=== PATIENT | female | born 1950 | race Caucasian/White ===

== ENCOUNTER 2018-03-16 08:57 | Day surgery (SDC) | payer MEDICARE, OTHER ==
[2018-03-16] MEDS ORDERED: Ketamine HCl 50 MG/ML IV ONE (08:58)
[2018-03-16] MEDS ORDERED: DIPRIVAN 200 MG/20 ML IV ONE (08:58)
--- NOTE | 2018-03-16 09:00 | HP ---
DATE OF SURGERY: 03/16/2018 HISTORY OF PRESENT ILLNESS: The patient is a 67 year-old last colonoscopy greater than six years ago. No change in bowel habits. No bloody stools. Family history negative for colon cancer. She is in need of follow up screening colonoscopy as requested per nurse practitioner. PAST MEDICAL HISTORY: Reflux. Anxiety. Depression. PAST SURGICAL HISTORY: Cholecystectomy. Cataract surgery. Sinus surgery. Cyst removed. Hysterectomy. Knee surgery. MEDICATIONS: Omeprazole, triamterene hydrochloride, escitalopram, oxybutynin, sumatriptan. ALLERGIES: NKDA. FAMILY HISTORY: Cancer. Hypertension. Heart disease. SOCIAL HISTORY: No smoking. Occasional wine denies alcohol abuse. REVIEW OF SYSTEMS: Twelve systems reviewed negative or noncontributory as above and per preadmission questionnaire. PHYSICAL EXAMINATION: GENERAL: No acute distress. HEENT: Sclerae nonicteric. NECK: No JVD. CHEST: Equal excursion, nonlabored breathing. CVS: Regular rate and rhythm. ABDOMEN: Soft. No peritoneal signs. EXTREMITIES: No significant edema. NEURO: Alert, oriented, moving extremities symmetrically. No gross motor deficits noted. RECTAL: Deferred timed to endoscopy exam. IMPRESSION: Need for screening colonoscopy. I feel the patient is a candidate. Shown the risk sheet and explained the procedure in detail including but not limited to bleeding or infection, small risk of bowel injury or perforation possibly requiring open procedure, risk of ongoing morbidity, risk of missed or nondiagnosis or incomplete exam possibly requiring barium enema, other studies or procedures, general risk of anesthesia or sedation, risk of bowel prep, postoperative risk of nausea or cramping but not limited to. She understands and agrees to the planned procedure and will proceed with outpatient screening colonoscopy.
[2018-03-16] MEDS ORDERED: Lactated Ringers 1,000 ML IV ONE (09:54)
[2018-03-16] MEDS ORDERED: Lactated Ringers 1,000 ML IV SCH (10:00)
[2018-03-16 12:02] VITALS: BP 145/96; PULSE 68; O2SAT 95
--- NOTE | 2018-03-16 15:32 | OP ---
SURGERY DATE/TIME: 03/16/2018 1054 PREOPERATIVE DIAGNOSIS: Screening colonoscopy. POSTOPERATIVE DIAGNOSES: 1) Diverticulosis. 2) Small internal and external hemorrhoids. 3) Somewhat limited bowel prep, some liquidy and some semi-solid stool throughout the colon, overall fair technically. PROCEDURES: Colonoscopy to cecum. SURGEON: Dr. Patrick Lambert. ANESTHESIA: MAC. ESTIMATED BLOOD LOSS: Minimal. INDICATIONS: As noted above. Risks and benefits explained in detail but not limited to and consent obtained. DESCRIPTION OF PROCEDURE AND FINDINGS: The patient is taken to the endoscopy suite. MAC anesthesia introduced. After official time out and no disagreement with planned procedure, digital rectal exam did not reveal any rectal masses. She did have some small internal and external hemorrhoids. Video colonoscope inserted and passed up through the tortuous sigmoid, descending, transverse and ascending colon. With external pressure in a couple different locations by staff members, scope was able to be passed around to the cecum, appendiceal orifice and valve well visualized. Prep did limit the exam somewhat with liquidy, semi-solid stools suction irrigated as well as possible but limiting the exam for very small lesions. Scope slowly and carefully withdrawn. There were no signs of any large polyps, masses or obstructing lesions. She did have diverticulosis mainly in the left colon with some scattered throughout. She had small internal and external hemorrhoids otherwise there were no signs of any large polyps, masses or obstructing lesions. The scope is withdrawn. There were no immediate complications. There was no family available to discuss the findings with. As her prep was just somewhat limited, overall fair category I recommend considering follow up colonoscopy in about five years. Otherwise continue high fiber diet. No biopsies were necessary. If she has any questions we can see her in the office next week otherwise we put her in the reminder system.
== END 2018-03-16 12:18 | disposition home or self-care (01) ==
LOC: SDC 08:57
PROVIDERS: ATTEND Surgery
DX: Z12.11 Encounter for screening for malignant neoplasm of colon (principal); K57.90 Diverticulosis of intestine, part unspecified, without perforation or abscess without bleeding; K64.4 Residual hemorrhoidal skin tags; K64.8 Other hemorrhoids; K21.9 Gastro-esophageal reflux disease without esophagitis; F41.9 Anxiety disorder, unspecified; F32.9 Major depressive disorder, single episode, unspecified; Z79.899 Other long term (current) drug therapy
CPT/HCPCS: J2704

== ENCOUNTER 2018-05-02 09:20 | Emergency (ER) | payer MEDICARE, OTHER ==
[2018-05-02] MEDS ORDERED: Zofran 4 MG/2 ML VIAL IV ONE (09:50)
--- NOTE | 2018-05-02 09:58 | ERPHSYRPT ---
- History of Present Illness Time Seen by Provider: 05/02/18 09:30 Historian: patient, family Exam Limitations: no limitations Patient Subjective Stated Complaint: PT C/O INTERMITTENT VOMITING SINCE 9 DAYS AGO, STATES HAS BEEN CONSTANT SINCE 3 DAYS AGO, ET DIARRHEA. REPORTS FEELING LIKE SHE HAS HAD A FEVER, BUT HAS NOT CHECKED TEMP AT HOME. PT WAS SEEN BY PCP YESTERDAY AND GIVEN ZOFRAN WITH NO RELIEF AND WAS TESTED FOR INFLUENZA AND TOLD IT WAS NEGATIVE. Triage Nursing Assessment: PINK/WARM/DRY, RESP EASY, A&OX4, STEADY GAIT FROM WHEELCHAIR TO BED. NO DISTRESS NOTED, NO ACTIVE VOMITING. 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 feverish- not documented- diarrhea x 1 only yesterday; some general abd pain now from N&V - not localized ; no symptoms; no prior hx; Timing/Duration: day(s) (diarrhea x 1 yesterday/), week(s) (one), intermittent, gradual onset, worse Activities at Onset: none Quality: aching Abdominal Pain Onset Location: generalized abdomen Pain Radiation: no radiation Severity of Pain-Max: mild Severity of Pain-Current: mild Modifying Factors: Improves With: vomiting Associated Symptoms: back, diarrhea (x 1 yesterday only), fever/chills, loss of appetite, nausea, vomiting Previous symptoms: no prior history Allergies/Adverse Reactions: iodine Allergy (Verified 05/02/18 09:31) latex Allergy (Verified 05/02/18 09:31) Home Medications: Escitalopram Oxalate 10 mg [Lexapro 10 MG] 10 mg PO DAILY 05/23/13 [History] Omeprazole 20 MG [Prilosec 20 mg] 40 mg PO DAILY 05/23/13 [History] Oxybutynin Chloride 5 mg PO TID 03/04/18 [History] Sumatriptan Succinate [Imitrex] 100 mg PO QDP PRN 03/04/18 [History] Triamterene/Hydrochlorothiazid [Triamterene-Hctz 37.5-25 mg Tb] 1 each PO DAILY 03/04/18 [History] Ashwagandha 1 tab PO DAILY 05/02/18 [History] Calcium Carb, Citrate/Vit D3 [Calcium + D3 ER Tablet] 1 tab PO DAILY 05/02/18 [ History] Cholecalciferol (Vitamin D3) [Vitamin D3] 05/02/18 [History] Cyanocobalamin (Vitamin B-12) [Vitamin B12] 500 mcg PO DAILY 05/02/18 [History] Iron 28 mg PO DAILY 05/02/18 [History] Multivit with Iron,Minerals [Complete Senior] 1 tab PO DAILY 05/02/18 [History] Ondansetron HCl 8 mg PO Q6H PRN PRN 05/02/18 [History] Turmeric 450 mg PO DAILY 05/02/18 [History] Zinc Gluconate [Zinc] 30 mg PO DAILY 05/02/18 [History] Hx Tetanus, Diphtheria Vaccination/Date Given: No Hx Influenza Vaccination/Date Given: No Hx Pneumococcal Vaccination/Date Given: No Immunizations Up to Date: Yes - Review of Systems Constitutional: Fever, Chills Eyes: No Symptoms Ears, Nose, & Throat: No Symptoms Respiratory: No Cough, No Dyspnea, No Wheezing Cardiac: No Chest Pain, No Palpitations, No Syncope Abdominal/Gastrointestinal: Abdominal Pain, Nausea, Vomiting, Diarrhea (x 1 only ), No Constipation, No Hematemesis, No Hematochezia Genitourinary Symptoms: No Symptoms Musculoskeletal: Back Pain, No Arthralgias, No Neck Pain, No Fall Skin: No Symptoms Neurological: No Symptoms Psychological: No Symptoms Endocrine: No Symptoms Hematologic/Lymphatic: No Symptoms Immunological/Allergic: No Symptoms - Past Medical History Pertinent Past Medical History: No Neurological History: Migraines ENT History: No Pertinent History Cardiac History: No Pertinent History Respiratory History: No Pertinent History Endocrine Medical History: No Pertinent History Musculoskeletal History: No Pertinent History GI Medical History: GERD History: Other Psycho-Social History: Depression Female Reproductive Disorders: No Pertinent History Other Medical History: bladder urgency. - Past Surgical History Past Surgical History: Yes Neuro Surgical History: No Pertinent History Cardiac: No Pertinent History Respiratory: No Pertinent History Gastrointestinal: Cholecystectomy Genitourinary: No Pertinent History Musculoskeletal: Orthopedic Surgery Female Surgical History: Hysterectomy Other Surgical History: Cyst removed from breast and neck, partial knee replacement, sinus surgery, - Social History Smoking Status: Former smoker Exposure to second hand smoke: No Alcohol Use: None Drug Use: none Patient Lives Alone: No Significant Family History: no pertinent family hx - Female History Hx Now: No - Nursing Vital Signs Nursing Vital Signs: Initial Vital Signs Temperature 98.9 F 05/02/18 09:32 Pulse Rate 90 05/02/18 09:32 Respiratory Rate 16 05/02/18 09:32 Blood Pressure 126/97 05/02/18 09:32 O2 Sat by Pulse Oximetry 96 05/02/18 09:32 Pain Scale Pain Intensity 0 - Physical Exam General Appearance: moderate distress, alert Eye Exam: PERRL/EOMI, eyes nml inspection Ears, Nose, Throat Exam: normal ENT inspection, TMs normal, pharynx normal, dry mucous membranes, No moist mucous membranes, No pharyngeal erythema, No tonsillar exudate Neck Exam: normal inspection, non-tender, supple, full range of motion, No meningismus, No carotid bruit, No JVD Respiratory Exam: normal breath sounds, lungs clear, airway intact, No chest tenderness, No respiratory distress, No crackles/rales, No rhonchi, No wheezing Cardiovascular Exam: regular rate/rhythm, normal heart sounds, normal peripheral pulses, capillary refill <2 sec, No murmur Gastrointestinal/Abdomen Exam: soft, normal bowel sounds, tenderness (mild diffuse; slight increasedd in epig and RUQ but no guarding), No distention, No guarding, No pulsatile mass, No rebound, No organomegaly Pelvic Exam: deferred Rectal Exam: deferred Back Exam: normal inspection, normal range of motion, CVA tenderness (mild right ), No vertebral tenderness, No rash Extremity Exam: normal inspection, normal range of motion, No jose luis's sign, No pedal edema Neurologic Exam: alert, oriented x 3, cooperative, 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, normal mood/affect, nml station & gait, sensation nml Skin Exam: normal color, warm, dry, No rash, No petechiae, No cyanosis Lymphatic Exam: No adenopathy SpO2 Interpretation: normal SpO2: 96 O2 Delivery: Room Air - Course Nursing assessment & vital signs reviewed: Yes - CT Exams Abdomen/Pelvis CT Interpretation: Negative, Tele-radiologist Report (diverticulosis) Ordered Tests: Active Orders 24 hr Category Date Time Status Cath for Specimen-Straight STAT Care 05/02/18 09:51 Active IV Insertion STAT Care 05/02/18 09:50 Active NPO (ED) STAT Care 05/02/18 09:50 Active Re-Check Vital Signs STAT Care 05/02/18 09:50 Active ABDOMEN AND PELVIS W/0 CONTRAS [CT] Stat Exams 05/02/18 11:53 Taken OBSTR/ACUTE ABDOMEN SERIES Stat Exams 05/02/18 09:51 Taken AMYLASE Stat Lab 05/02/18 10:00 Completed CBC W DIFF Stat Lab 05/02/18 10:00 Completed CMP Stat Lab 05/02/18 10:00 Completed CULTURE,URINE Stat Lab 05/02/18 11:13 Received LIPASE Stat Lab 05/02/18 10:00 Completed Lactic Acid Stat Lab 05/02/18 10:05 Completed UA W/RFX UR CULTURE Stat Lab 05/02/18 11:13 Completed Medication Summary Generic Name Dose Route Start Last Admin Trade Name Freq PRN Reason Stop Dose Admin Sodium Chloride 1,000 mls @ 100 mls/hr 05/02/18 10:00 05/02/18 13:36 Sodium Chloride 0.9% 1000 Ml IV 06/01/18 09:59 Infused .Q10H AGUILA Infusion Discontinued Medications Generic Name Dose Route Start Last Admin Trade Name Freq PRN Reason Stop Dose Admin Sodium Chloride 1,000 mls @ 999 mls/hr 05/02/18 12:03 05/02/18 12:04 Sodium Chloride 0.9% 1000 Ml IV 05/02/18 13:03 999 mls/hr .Q1H1M STA Administration Ketorolac Tromethamine 30 mg 05/02/18 11:52 05/02/18 12:04 Toradol 30 Mg Injection IV 05/02/18 11:53 30 mg STAT ONE Administration Ketorolac Tromethamine Confirm 05/02/18 12:00 Toradol 30 Mg Injection Administered 05/02/18 12:01 Dose 30 mg .ROUTE .STK-MED ONE Metoclopramide HCl 10 mg 05/02/18 14:30 05/02/18 14:54 Reglan 10 Mg/2 Ml IV 05/02/18 14:31 10 mg STAT ONE Administration Metoclopramide HCl Confirm 05/02/18 14:52 Reglan 10 Mg/2 Ml Administered 05/02/18 14:53 Dose 10 mg .ROUTE .STK-MED ONE Ondansetron HCl 4 mg 05/02/18 09:50 05/02/18 10:19 Zofran 4 Mg/2 Ml Vial IV 05/02/18 09:51 4 mg STAT ONE Administration Ondansetron HCl Confirm 05/02/18 10:17 Zofran 4 Mg/2 Ml Vial Administered 05/02/18 10:18 Dose 4 mg .ROUTE .STK-MED ONE Promethazine HCl 12.5 mg 05/02/18 11:52 05/02/18 11:58 Phenergan 25 Mg Inj IV 05/02/18 11:53 Not Given STAT ONE Promethazine HCl 25 mg 05/02/18 11:55 05/02/18 12:05 Phenergan 25 Mg Inj IM 05/02/18 11:56 25 mg STAT ONE Administration Promethazine HCl Confirm 05/02/18 12:00 Phenergan 25 Mg Inj Administered 05/02/18 12:01 Dose 25 mg .ROUTE .STK-MED ONE Lab/Rad Data: Laboratory Result Diagrams 05/02/18 10:00 05/02/18 10:00 Laboratory Results 05/02/18 05/02/18 05/02/18 Range/Units 11:13 10:05 10:00 WBC (4.0-10.5) K/mm3 RBC (4.1-5.4) M/mm3 Hgb (12.0-16.0) gm/dl Hct (35-47) % MCV (78-100) fl MCH (26-32) pg MCHC (32-36) g/dl RDW (11.5-14.0) % Plt Count (150-450) K/mm3 MPV (6-9.5) fl Gran % (36.0-66.0) % Eos # (Auto) (0-0.5) Absolute Lymphs (auto) (1.0-4.6) Absolute Monos (auto) (0.0-1.3) Lymphocytes % (24.0-44.0) % Monocytes % (0.0-12.0) % Eosinophils % (0.00-5.0) % Basophils % (0.0-0.4) % Absolute Granulocytes (1.4-6.9) Basophils # (0-0.4) Sodium 137 (137-145) mmol/L Potassium 3.2 L (3.5-5.1) mmol/L Chloride 99 (98-107) mmol/L Carbon Dioxide 27 (22-30) mmol/L Anion Gap 14.0 (5-15) MEQ/L BUN 17 (7-17) mg/dL Creatinine 0.69 (0.52-1.04) mg/dL Estimated GFR > 60.0 ML/MIN Glucose 122 H (74-106) mg/dL Lactic Acid 1.3 (0.4-2.0) Calcium 9.0 (8.4-10.2) mg/dL Total Bilirubin 0.60 (0.2-1.3) mg/dL AST 61 H (14-36) U/L ALT 37 H (0-35) U/L Alkaline Phosphatase 60 (38-126) U/L Serum Total Protein 7.8 (6.3-8.2) g/dL Albumin 4.3 (3.5-5.0) g/dL Amylase 44 (30-110) U/L Lipase 33 (23-300) U/L Urine Color YELLOW (YELLOW) Urine Appearance SLIGHTLY CLOUDY (CLEAR) Urine pH 6.0 (5-6) Ur Specific [place] 1.019 (1.005-1.025) Urine Protein 100 (Negative) Urine Ketones SMALL (NEGATIVE) Urine Blood MODERATE (0-5) Jermaine/ul Urine Nitrite NEGATIVE (NEGATIVE) Urine Bilirubin NEGATIVE (NEGATIVE) Urine Urobilinogen 2 (0-1) mg/dL Ur Leukocyte Esterase NEGATIVE (NEGATIVE) Urine WBC (Auto) 3-5 (0-5) /HPF Urine RBC (Auto) 51-100 (0-2) /HPF U Epithel Cells (Auto) NONE (FEW) /HPF Urine Bacteria (Auto) FEW (NEGATIVE) /HPF Amorphous Crystals MODERATE (NEGATIVE) /HPF Urine Mucus (Auto) SLIGHT (NEGATIVE) /HPF Urine Culture Reflexed YES (NO) Urine Glucose NEGATIVE (NEGATIVE) mg/dL Slides for Path Review 05/02/18 Range/Units 10:00 WBC 7.6 (4.0-10.5) K/mm3 RBC 4.44 (4.1-5.4) M/mm3 Hgb 14.0 (12.0-16.0) gm/dl Hct 41.2 (35-47) % MCV 92.8 (78-100) fl MCH 31.5 (26-32) pg MCHC 34.0 (32-36) g/dl RDW 15.1 H (11.5-14.0) % Plt Count 238 (150-450) K/mm3 MPV 11.0 H (6-9.5) fl Gran % 86.0 H (36.0-66.0) % Eos # (Auto) 0.01 (0-0.5) Absolute Lymphs (auto) 0.45 L (1.0-4.6) Absolute Monos (auto) 0.58 (0.0-1.3) Lymphocytes % 5.9 L (24.0-44.0) % Monocytes % 7.7 (0.0-12.0) % Eosinophils % 0.1 (0.00-5.0) % Basophils % 0.3 (0.0-0.4) % Absolute Granulocytes 6.52 (1.4-6.9) Basophils # 0.02 (0-0.4) Sodium (137-145) mmol/L Potassium (3.5-5.1) mmol/L Chloride (98-107) mmol/L Carbon Dioxide (22-30) mmol/L Anion Gap (5-15) MEQ/L BUN (7-17) mg/dL Creatinine (0.52-1.04) mg/dL Estimated GFR ML/MIN Glucose (74-106) mg/dL Lactic Acid (0.4-2.0) Calcium (8.4-10.2) mg/dL Total Bilirubin (0.2-1.3) mg/dL AST (14-36) U/L ALT (0-35) U/L Alkaline Phosphatase (38-126) U/L Serum Total Protein (6.3-8.2) g/dL Albumin (3.5-5.0) g/dL Amylase (30-110) U/L Lipase (23-300) U/L Urine Color (YELLOW) Urine Appearance (CLEAR) Urine pH (5-6) Ur Specific [place] (1.005-1.025) Urine Protein (Negative) Urine Ketones (NEGATIVE) Urine Blood (0-5) Jermaine/ul Urine Nitrite (NEGATIVE) Urine Bilirubin (NEGATIVE) Urine Urobilinogen (0-1) mg/dL Ur Leukocyte Esterase (NEGATIVE) Urine WBC (Auto) (0-5) /HPF Urine RBC (Auto) (0-2) /HPF U Epithel Cells (Auto) (FEW) /HPF Urine Bacteria (Auto) (NEGATIVE) /HPF Amorphous Crystals (NEGATIVE) /HPF Urine Mucus (Auto) (NEGATIVE) /HPF Urine Culture Reflexed (NO) Urine Glucose (NEGATIVE) mg/dL Slides for Path Review YES reviewed - Progress Progress: improved, re-examined (after xr and meds) Progress Note: 05/02/18 09:59 will get labs- give IV fluids and meds; labs and xr pending; at bedside ; monitor and recheck 05/02/18 10:00 05/02/18 10:24 cbc and lactate ok; IV fluids going; XR and labs pending; RN giving meds; at bedside 05/02/18 10:48 XR unremarkable- no obstruction; CMP ok except low K+ 3.2; kenney and lip ok; UA pending; will continue IV fluids and meds and recheck 05/02/18 11:18 recheck after XR and meds and IV fluids; Nausea resolving but still present; pain improving; ua pending 05/02/18 11:53 recheck - at bedside; N&V returning and still with pain; UA shows hematuria; will get CT for possible stone; medicate for pain and N&V, continue IVs and recheck 05/02/18 11:54 05/02/18 12:[address]; feeling better; N&V resolved- pain controlled; CT results pending 05/02/18 14:02 shortly thereafter N&V returned; CT results reported as NEG; will monitor and recheck 05/02/18 14:08 rechecked - family at bedside- patient sitting up feeling much better; will try a pop cycle and recheck 05/02/18 14:30 recheck and family at bedside- tolerated pop cycles for a few minutes then N&V returned- consulted Pharmacy and suggested Reglan as no Inapsin in stock; will continue IV fluids - give Reglan and recheck 05/02/18 15:28 recheck and patient states " I'm cured" - symptoms resolved- family at bedside- instructions given Counseled pt/family regarding: lab results, diagnosis, need for follow-up, rad results - Departure Time of Disposition: 15:29 Departure Disposition: Home Clinical Impression: abdominal pain with nausea & vomiting Condition: Stable Critical Care Time: No Referrals: KUSHAL CHAHAL, ROGER [Primary Care Provider] - Instructions: Vomiting -- Adult, Nausea -- Adult Additional Instructions: clear fluids 24 hours; bland diet Follow-up with family doctor as directed. Call for appointment. Return if any problems. If you smoke please stop. Call or follow up with your family doctor for assistance if you need it to stop. Please wear your seatbelt when driving. Have a nice day. Thank you for allowing us to participate in your care today. :o) Dr Kolby Lovett Prescriptions: Metoclopramide HCl 10 mg [Reglan 10 MG] 10 mg PO ACHS #40 tablet
[2018-05-02] MEDS ORDERED: Sodium Chloride 0.9% 1000 ML 1,000 ML IV SCH (10:00)
[2018-05-02 10:11] LABS: BASOPHIL % 0.3 % (0.0-0.4); Basophil (Absolute #) 0.02 (0-0.4); Eosinophil % 0.1 % (0.00-5.0); Eosinophil (Absolute #) 0.01 (0-0.5); Granulocyte Absolute (ANC) 6.52 (1.4-6.9); Hematocrit 41.2 % (35-47); Lymphocyte (Absolute #) 0.45 (1.0-4.6); Lymphocytes % 5.9 % (24.0-44.0); Mean Cell Volume 92.8 fl (78-100); Mean Corpuscular Hemoglobin 31.5 pg (26-32); Monocyte (Absolute #) 0.58 (0.0-1.3); Monocytes % 7.7 % (0.0-12.0); Platelet Count 238 K/mm3 (150-450); Red Blood Count 4.44 M/mm3 (4.1-5.4); Red Cell Distribution Width 15.1 % (11.5-14.0); White Blood Count 7.6 K/mm3 (4.0-10.5)
[2018-05-02] MEDS ORDERED: Sodium Chloride 0.9% 1000 ML 1,000 ML ONE ×2 (10:17→12:02)
[2018-05-02] MEDS ORDERED: Zofran 4 MG/2 ML VIAL ONE (10:17)
[2018-05-02 10:24] LABS: ALBUMIN 4.3 g/dL (3.5-5.0); ALKALINE PHOSPHATASE 60 U/L (38-126); AMYLASE 44 U/L (30-110); BLOOD UREA NITROGEN 17 mg/dL (7-17); CHLORIDE 99 mmol/L (98-107); Carbon Dioxide 27 mmol/L (22-30); Creatinine 1 0.69 mg/dL (0.52-1.04); Glucose 122 mg/dL (74-106); LIPASE 33 U/L (23-300); Potassium 3.2 mmol/L (3.5-5.1); SGOT/AST 61 U/L (14-36); SGPT/ALT 37 U/L (0-35); SODIUM 137 mmol/L (137-145); Total Protein 7.8 g/dL (6.3-8.2)
[2018-05-02 11:08] LABS: Slide Review 1 YES
[2018-05-02 11:33] LABS: Amourphous Crystal MODERATE /HPF (NEGATIVE); Appearance SLIGHTLY CLOUDY (CLEAR); Bacteria FEW /HPF (NEGATIVE); Bilirubin NEGATIVE (NEGATIVE); Blood MODERATE Ery/ul (0-5); Glucose NEGATIVE (NEGATIVE); Ketones SMALL (NEGATIVE); Leukocyte Esterase NEGATIVE (NEGATIVE); Mucus SLIGHT /HPF (NEGATIVE); Nitrite NEGATIVE (NEGATIVE); Protein,Urine Dip 100 (Negative); RBC 51-100 /HPF (0-2); Specific Gravity 1.019 (1.005-1.025); Urobilinogen 2 mg/dL (0-1)
[2018-05-02] MEDS ORDERED: Phenergan 25 MG INJ IV ONE (11:52)
[2018-05-02] MEDS ORDERED: TORAdol 30 mg Injection IV ONE (11:52)
[2018-05-02] MEDS ORDERED: Phenergan 25 MG INJ IM ONE (11:55)
[2018-05-02] MEDS ORDERED: Phenergan 25 MG INJ ONE (12:00)
[2018-05-02] MEDS ORDERED: TORAdol 30 mg Injection ONE (12:00)
[2018-05-02] MEDS ORDERED: Sodium Chloride 0.9% 1000 ML 1,000 ML IV STA (12:03)
[2018-05-02] MEDS ORDERED: Reglan 10 MG/2 ML IV ONE (14:30)
[2018-05-02] MEDS ORDERED: Reglan 10 MG/2 ML ONE (14:52)
[2018-05-02 15:39] VITALS: BP 137/86; PULSE 78; O2SAT 97
--- NOTE | 2018-05-02 19:53 | XRAY ---
Indication: Abdomen pain, nausea, vomiting, diarrhea. Multiple contiguous axial images obtained through the abdomen and pelvis without contrast as ordered. Comparison: None Lung bases demonstrates minimal bibasilar atelectasis/scarring. 9 mm right middle lobe noncalcified granuloma. A few right infrahilar calcified nodes. Heart is not enlarged. Small hiatal hernia. Noncontrasted stomach and bowel loops appear nonobstructed. Mild fluid distended small bowel loops with synchronous fluid leveling, ileus versus enteritis. Scattered descending and sigmoid diverticulosis without diverticulitis. Previous appendectomy, cholecystectomy and hysterectomy. Incidental pelvic pessary ring. No free fluid/air. 3.7 cm right mid renal exophytic cyst. Remaining liver, pancreas, spleen, adrenal glands, kidneys, ureters, and bladder appear unremarkable for noncontrast exam. Mild aortic calcifications without AAA. Osseous structures intact with mild degenerative changes throughout the spine. No ventral or inguinal hernias. Impression: 1. Mild fluid distended small bowel loops with synchronous fluid leveling, ileus versus enteritis. 2. Colonic diverticulosis without diverticulitis. 3. Right renal cyst, small hiatal hernia, and evidence for old granulomatous disease. Comment: Preliminary interpretation was made by [facility] who does not report noncritical small bowel and right renal findings. CTDI 23.67
--- NOTE | 2018-05-02 19:56 | XRAY ---
Indication: Abdomen pain, nausea, vomiting, diarrhea. Comparison: Chest exam January 21, 2018. 2 views of the abdomen demonstrates nonspecific nonobstructed bowel gas pattern with cholecystotomy clips, pelvic pessary ring, and phleboliths overlying the right sacrum. Remaining solid organs are unremarkable. Osseous structures intact with degenerative changes throughout the spine. Single PA chest again demonstrates normal heart and lungs with tortuous descending aorta. Bony thorax intact again with mild degenerative changes. Impression: Nonacute nonobstructed abdomen with chronic features. Stable nonacute one view chest.
== END 2018-05-02 15:46 | disposition home or self-care (01) ==
LOC: ED 09:20
DX: R10.9 Unspecified abdominal pain (principal); R11.2 Nausea with vomiting, unspecified; K21.9 Gastro-esophageal reflux disease without esophagitis; F32.9 Major depressive disorder, single episode, unspecified; Z79.899 Other long term (current) drug therapy
CPT/HCPCS: 36000; 36415; 74022; 74176; 80053; 81001; 82150; 83605; 83690; 85025; 87086; 96360; 96361; 96372; 96374; 96375; 99285; P9612; J1885; J2405; J2550